=== PATIENT | male | born 1950 | race Caucasian/White ===

== ENCOUNTER 2016-07-20 19:28 | Emergency (ER) | payer BC ==
[~2016-07-20] VITALS: Ht 185.4 cm; Wt 98.9 kg
[2016-07-20] MEDS ORDERED: Bacitracin Oint UD TOPIC ONE (20:00)
[2016-07-20] MEDS ORDERED: Lidocaine 1% MPF 10mg/ml 5ml IM ONE (20:00)
[2016-07-20 20:05] VITALS: BP 162/88
[2016-07-20] MEDS ORDERED: IBUPROFEN600 MG ORAL (20:42)
[2016-07-20] MEDS ORDERED: BACITRACIN15 GM TOPIC (20:42)
[2016-07-20 20:54] VITALS: BP 162/88
--- NOTE | 2016-07-21 03:32 | Emergency Room Report ---
History of Present Illness General Chief Complaint: Laceration Source: Patient Present Illness HPI Patient with cut to index finger L hand. Wood kicked back from table saw. Tore tip of finger. Not saw cut. Bleeding controlled. Pain somewhat better 3/ 10 aching sharp. Took Keflex. Tet UTD. R handed. No fevers, diabetes. Allergies: Coded Allergies: BUSPIRONE (Verified Allergy, Unknown, 07/20/16) Patient History Social History Narrative richards Reviewed Nursing Documentation: PMH: Agreed, PSxH: Agreed Nursing Documentation-PMH Past Medical History: No Stated History Review of Systems Constitutional: Reports: see HPI Musculoskeletal: Reports: see HPI Skin: Reports: see HPI Neurological: Reports: see HPI Physical Exam Vital Signs Date Time Temp Pulse Resp B/P Pulse Ox O2 Delivery O2 Flow Rate FiO2 07/20/16 19:33 98.1 94 15 162/88 97 Room Air Sp02 EP Interpretation: reviewed, normal General Appearance: well appearing, no apparent distress, GCS 15 Head: normocephalic, atraumatic Eyes: bilateral eye PERRL, bilateral eye normal inspection ENT: hearing grossly normal, normal voice Neck: full range of motion, supple Respiratory: no respiratory distress, speaking full sentences Cardiovascular #2: 2+ radial (L) - good peripheral circulation Musculoskeletal: gait/station normal, normal range of motion Neurologic: alert, motor strength/tone normal, sensory intact - minimal numbness of flap, normal gait Psychiatric: mood/affect normal Skin: laceration - L index finger = 1 cm L shaped Procedures Laceration/Wound Repair Laceration/Wound Repair : Consent: Verbal Wound Location: other - L index finger Wound's Depth, Shape: superficial Wound Explored: clean Betadine Prep?: Yes Anesthesia: 1% Lidocaine - ring block Volume Anesthetic (ccs): 2 Wound Debrided: minimal Wound Repaired With: sutures Suture Size/Type: 5:0, nylon Sterile Dressing Applied?: Yes Splint Applied?: No Patient Tolerated: Well Complications: None Medical Decision Making Diagnostic Impression: Primary Impression: Laceration ER Course Patient with laceration of L index finger. During procedure, examined and superficial to bone. Fracture doubted. Laceration repaired. Tolerated well. Patient stable for outpatient observation and treatment. Last Vital Signs Date Time Temp Pulse Resp B/P Pulse Ox O2 Delivery O2 Flow Rate FiO2 07/20/16 20:54 98.1 15 162/88 97 Room Air 07/20/16 19:33 94 Status: improved Disposition: HOME, SELF-CARE Condition: Improved Scripts Bacitracin (Bacitracin) 28.4 Gm Oint...g. 1 APPLIC TOPIC BID, #10 GM Prov: Ruslan March M.D. 07/20/16 Ibuprofen* (MOTRIN*) 600 Mg Tablet 600 MG ORAL Q6H Y for For Pain, #20 TAB Prov: Ruslan March M.D. 07/20/16 Referrals: NON PHYSICIAN (PCP) Departure Forms: Return to Work Return to Work in (Days): 7 Other Restrictions: Keep hand clean and dry. Patient Instructions: Laceration Care, Adult Additional Instructions: Have sutures out in 7 - 8 days. Keep clean and dry. Ruslan March M.D. Jul 21, 2016 03:32
== END 2016-07-20 20:55 | disposition home or self-care (01) ==
LOC: EMR 20:17
DX: S61.211A Laceration without foreign body of left index finger without damage to nail, initial encounter (principal); W27.0XXA Contact with workbench tool, initial encounter; Y93.9 Activity, unspecified; Y92.9 Unspecified place or not applicable; Z88.8 Allergy status to other drugs, medicaments and biological substances
CPT/HCPCS: 96372